=== PATIENT | female | born 1995 | race Caucasian/White ===

== ENCOUNTER 2021-04-25 04:58 | Inpatient (IN) | payer OTHER, SELFPAY ==
--- NOTE | 2021-04-18 08:47 | ANES.PREANE2 ---
Pre-Anesthetic Assessment Pre-Anesthetic Assessment: Proposed Procedure: Operation Date: 04/25/21 07:00 Proposed Procedures p Section(Not Applicable) - Esequiel Ortega MD Social: Social History: No alcohol and No tobacco Airway: Submandibular: WNL Cervical ROM: WNL MP: 3 History/ROS: No significant history except as noted and No significant complaints Pulmonary: Comments: allergies GI: GI: GERD Comments: takes omeprazole Anesthetic Plan: ASA status: 2 Anesthesia: Anesthesia Evaluation Risk of > 500 ml blood loss (7ml/kg in children): Yes, adequate IV access and fluids planned Data Anesthesia Cardiac Studies: No Data to Display
[2021-04-25] VITALS (28 sets, daily range): BP systolic 102–146; BP diastolic 52–90; PULSE 70–107; RESP 15–18; TEMP 36.5–37.2; O2SAT 96–100; BMI 34.4
[2021-04-25 05:55] LABS: Basophils % 0.3 %; Eosinophils # 0.2 10^3/uL (0.0-0.8); Eosinophils % 1.8 %; Hematocrit 34.6 % (37.0-47.0); Hemoglobin 11.7 g/dL (11.5-15.3); Lymphocytes # 2.2 10^3/uL (0.8-4.8); Lymphocytes % 16.9 %; Mean Corpuscular HGB Conc 33.8 g/dL (30.0-36.0); Mean Corpuscular Hemoglobin 31.3 pg (28.0-34.0); Mean Corpuscular Volume 92.5 fL (81-99); Mean Platelet Volume 12.9 fL (7.4-10.4); Monocytes % 7.8 %; Neutrophils # 9.32 10^3/uL (1.8-7.7); Neutrophils % 72.4 %; Nucleated Red Blood Cells % 0 %; Platelet Count 122 10^3/cmm (130-400); Red Blood Count 3.74 10^6/uL (4.1-5.3); Red Cell Distribution Width 13.2 % (12.1-15.1); White Blood Count 12.9 10^3/uL (4.0-10.0)
[2021-04-25] MEDS: lactated ringers 1,000 ML 999 ML IV ×2 (05:56→07:01)
--- NOTE | 2021-04-25 06:47 | PM.OBGYHP ---
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 Her has otherwise been unremarkable. When we discovered that she had a breech presentation, we discussed her options including an external version, or even delivering at another location where they would be comfortable delivering breech baby vaginally. After discussion we elected to proceed with a section. We discussed the risks of bleeding, infection, and damage intra-abdominal organs. She had no further questions and wishes to proceed. Her has been relatively unremarkable. Her due date is based on a first trimester ultrasound. Her glucose screen was negative. Her infectious disease panel was negative. She is rubella nonimmune. Her blood type is O+. There were no antibodies detected. She has had no previous abdominal surgeries. Present Details : 1 Para: 0 Labs Rubella: Non-Immune RPR: Negative GBS: Negative Review of Systems General: Reports: 10 or more systems reviewed and unremarkable except in HPI and below Const: Reports: fatigue; Denies: fever(s) Eyes: Denies: change in vision Card: Reports: other (Edema in feet and legs over the last few months of her ); Denies: chest pain Musc: Reports: back pain Neuro: Reports: headache(s) (Intermittently) Aroldo/Lymph: Denies: easy bruising Medications/Allergies Home Medications Medication Instructions Recorded Confirmed Last Taken Type 19 04/25/21 04/24/21 21:00 History cetirizine [Zyrtec] 10 mg PO DAILY 04/25/21 04/25/21 04/24/21 21:00 History omeprazole 20 mg PO DAILY 04/25/21 04/25/21 04/24/21 21:00 History Allergies Allergy/AdvReac Type Severity Reaction Status Date / Time No Known Drug Allergies Allergy Unknown Verified 04/25/21 05:11 Vitals/I&O/Wt Last Vital Signs Temp 98.2 F 04/25/21 05:12 Pulse 107 H 04/25/21 05:13 Resp 18 04/25/21 05:19 BP 132/79 04/25/21 05:13 Weight last 48 hrs Weight 227 lb Physical Exam Const: COMMON NORMALS: patient oriented x3 and alert HENMT: COMMON NORMALS: moist oral mucous membranes HEAD & SCALP: normal to inspection Chest: COMMONS NORMALS: normal inspection of the chest Resp: COMMON NORMALS: clear to auscultation bilaterally AUSCULTATION: clear to auscultation bilaterally Cardio: COMMON NORMALS: regular rate and regular rhythm RATE: regular rate RHYTHM: regular rhythm GI: INSPECTION: Yes normal to inspection and Yes other (Gravid) Extremity: COMMON NORMALS: normal to inspection GENERAL: Yes edema (Trace) Neuro: COMMON NORMALS: patient oriented x3, moves all extremities and no sensory deficits noted SENSORIUM/ORIENTATION: Yes alert Psych: COMMON NORMALS: mental status grossly normal Skin: COMMON NORMALS: no rashes or lesions noted GENERAL SKIN EXAM: no rashes or lesions noted Data : 04/25/21 05:25 A&P Assessment and plan (1) Breech presentation: We will proceed with a scheduled section. An ultrasound was performed this morning and found the baby still in breech presentation. Status: Acute (2) 39 weeks gestation of : Status: Acute Attestations Medical Necessity Statement*: Routine and post care Coding Level of Care Code Acute Frozen Foods Manager for Chg Fwd Diagnoses Breech presentation O32.1XX0 39 weeks gestation of Z3A.39
--- NOTE | 2021-04-25 07:00 | P.ANESUD_ITS ---
Pre-Anesthetic Update Pre-Anesthetic Assessment: Date of Surgery/Procedure: 04/25/21 Preop Tigist gnosis: IUP breech Proposed Procedure: Operation Date: 04/25/21 07:00 Proposed Procedures p Section(Not Applicable) - Esequiel Ortega MD Any changes to Pre-Anesthetic Assessment?: No Last Intake: Intake Last Liquid Date 04/24/21 Last Liquid Time 23:00 Last Solid Date 04/24/21 Last Solid Time 23:00 Labs Last 48hrs: Laboratory Results - last 48 hr 04/25/21 05:25 WBC 12.9 H RBC 3.74 L Hgb 11.7 Hct 34.6 L MCV 92.5 MCH 31.3 MCHC 33.8 RDW 13.2 Plt Count 122 L MPV 12.9 H Neut % (Auto) 72.4 Lymph % (Auto) 16.9 Kem[place] % (Auto) 7.8 Eos % (Auto) 1.8 Baso % (Auto) 0.3 Neut # (Auto) 9.32 H Lymph # (Auto) 2.2 Kem[place] # (Auto) 1.0 H Eos # (Auto) 0.2 Baso # (Auto) 0.0 Nucleated RBC % (a uto) 0 Nucleated RBCs # 0.0 Vitals: Temperature 98.2 F 04/25/21 05:12 Pulse Rate 107 H 04/25/21 05:13 Pulse Rhythm 04/25/21 05:59 Pulse Strength 3+ Normal 04/25/21 05:59 Respiratory Rate 18 04/25/21 05:19 Respiratory Effort Non-Labored 04/25/21 05:59 Respiratory Depth Normal 04/25/21 05:59 Respiratory Patter n 04/25/21 05:59 Blood Pressure 132/79 04/25/21 05:13 Oxygen Delivery Me thod 04/25/21 06:36 Exam: Pre-Anes Outpt Exam: alert, oriented x 3, clear to auscultation bilaterally and regular rate & rhythm Cardiac Studies: No Data to Display
[2021-04-25] MEDS: citric acid-sodium citrate 30 mL UDC PO (07:01)
[2021-04-25] MEDS: metoclopramide 5 mg/mL SDV 2 mL 10 MG IVP (07:01)
[2021-04-25] MEDS: famotidine 20 mg/2 mL INJ IVP (07:01)
--- NOTE | 2021-04-25 08:36 | P.OP_ITS ---
Operative Report Date of procedure: April 25, 2021 Pre-op Diagnosis: IUP breech, 39 weeks EGA Post-op diagnosis: same Procedure Done: Lower transverse section Specimens removed/disposition: 1. Healthy-appearing female in a rosa breech presentation, with Apgars of 7 and 9 and a weight of 7 pounds 10 ounces 2. Placenta with three-vessel cord delivered intact Pathology: none sent Surgeon: Esequiel Ortega Anesthesia: Epidural (Spinal) Estimated blood loss (mL): 500 Complications: None Condition: stable Disposition: floor (OB) Brief History: Refer to history and physical Procedure: The patient was brought back to the operating room where she was prepped and draped in usual sterile fashion. Anesthesia was found to be adequate. A lower transverse skin incision was then made with a #10 blade. I then dissected down to the underlying subcutaneous tissue until arriving at the prerectal fascia. The fascia was then nicked with the scalpel bilaterally. The fascial incisions were then carried laterally with Franco scissors. Attention was then turned to the superior aspect of the incision which was grasped with kochers and tented up away from the underlying rectus abdominis muscles. The muscles were then dissected away from the fascia manually, and later with Franco scissors. Attention was then turned to the inferior aspect of the incision, and the fascia was dissected away from the underlying muscle in similar fashion. The rectus abdominis muscles were then spread manually. The peritoneum was entered manually. Excellent visualization of the uterus was noted. A lower transverse uterine incision was then made with a #10 blade. Upon arriving at the intrauterine cavity, the uterine incision was then extended manually. The was noted to be in vertex position. The baby was delivered without difficulty. After delivery of the head, the mouth and nose were suctioned at the site of the incision. There was no meconium. There was no nuchal cord. The remainder of the body was then delivered and placed on the abdomen. The cord was cut and clamped. The baby was then handed to the waiting nurse. The placenta was removed intact. The uterus was externalized. The intrauterine cavity was cleansed of any remaining debris. The uterine incision was reapproximated in 2 layers. The first layer was performed with 0 Vicryl in a running locked stitch. The second layer was an imbricating stitch also using 0 Vicryl. The uterus was replaced into the abdome n. The peritoneum was then irrigated with warm saline. I reexamined the uterine incision and found it to be hemostatic. The rectus abdominis muscles were then reapproximated using 0 Vicryl in a running stitch. The fascia was then reapproximated using 0 Vicryl in running stitch. The subcutaneous tissue was then reapproximated using 0 Vicryl in a running stitch. The skin was reapproximated using gita. A sterile dressing was placed. All counts were correct x2. Both the mother and baby were in stable condition. Associated Problem List Diagnoses (1) 39 weeks gestation of : (2) Breech presentation:
[2021-04-25] MEDS: dextrose 5%-lactated ringers 1,000 ML 125 ML IV ×2 (09:55→19:40)
[2021-04-25] MEDS: ketorolac 30 mg/mL INJ IVP ×2 (14:53→21:32)
--- NOTE | 2021-04-25 15:30 | ANE.PACU2 ---
Inpatient post-anesthesia follow up: Airway intact: Yes Vital signs: Temperature 98.5 F Pulse Rate 89 Respiratory Rate 16 Blood Pressure 133/73 Pulse Oximetry 97 Oxygen Delivery Me thod Room Air Oxygen Flow Rate Fraction of Inspir ed Oxygen Hydration adequate: Yes Nausea and vomiting: No Pain level: 2 Mental status: Baseline
[2021-04-25] MEDS: docusate sodium 100 mg Capsule PO (18:26)
[2021-04-25] MEDS: simethicone 80 mg Chew PO (19:39)
--- NOTE | 2021-04-25 21:45 | PC.NURSE ---
Catheter discontinued by this RN. Patient tolerated well. AR RN
[2021-04-25 22:32] LABS: Hematocrit 30.4 % (37.0-47.0); Hemoglobin 10.2 g/dL (11.5-15.3); Mean Corpuscular HGB Conc 33.6 g/dL (30.0-36.0); Mean Corpuscular Hemoglobin 31.4 pg (28.0-34.0); Mean Corpuscular Volume 93.5 fL (81-99); Platelet Count 124 10^3/cmm (130-400); Red Blood Count 3.25 10^6/uL (4.1-5.3); White Blood Count 15.3 10^3/uL (4.0-10.0)
[2021-04-26] MEDS: ketorolac 30 mg/mL INJ IVP (02:28)
[2021-04-26] MEDS: HYDROcodone-acetaminophen 5-325 mg Tablet PO ×2 (02:28→15:50)
[2021-04-26] MEDS: simethicone 80 mg Chew PO (02:33)
[2021-04-26 05:30] VITALS: BP 117/78; PULSE 85; RESP 15; TEMP 36.7
--- NOTE | 2021-04-26 07:13 | PM.OBGYDC ---
Discharge Providers GARNISHMENT SPECIALIST Date of Admission: 04/25/21 04:58 Date of Discharge: 04/26/21 Attending Provider at Admission: Esequiel Ortega MD Attending Provider at Discharge: Esequiel Ortega MD Primary Care Provider: Saul Pompa Diagnoses at Discharge Discharge Diagnosis (1) 39 weeks gestation of : Status: Acute (2) Breech presentation: Status: Acute Reason for Visit Reason for Visit: csection Hospital Course Hospital Course The patient presented to the hospital for a scheduled section due to breech presentation. Her was unremarkable. Her course was also been unremarkable. Her baby breast-fed well multiple times. Her bleeding was minimal. Her pain was well controlled. She passed flatus on her first postoperative morning. Her diet was advanced and she tolerated it well. There were no concerns. Information Peripartum Data: Infant Delivery Method: Physical Exam Narrative: EXAM NARRATIVE: She is in no acute distress Lungs are clear auscultation bilaterally Her heart has a regular rate and rhythm Her fundus is below the umbilicus and firm Her dressing is clean, dry and intact Her extremities have trace edema Urinary Catheter Management^: Perea Latex: Cath Placed During This Visit: yes Urinary Catheter Date of Insertion: 04/25/21 Urinary Catheter Time of Insertion: 07:26 Discharge Data Data Completed and Pending: Labs from last 24 hours 04/25/21 21:39 WBC 15.3 H RBC 3.25 L Hgb 10.2 L Hct 30.4 L MCV 93.5 MCH 31.4 MCHC 33.6 RDW 13.0 Plt Count 124 L MPV 13.0 H Vitals: Last Vital Signs Temp 99.0 F 04/25/21 22:05 Pulse 88 04/25/21 22:05 Resp 17 04/25/21 22:05 BP 123/74 04/25/21 21:45 Pulse Ox 96 04/25/21 16:40 Discharge Plan Discharge Patient Disposition: Home Condition: Stable Prescriptions: New ibuprofen 800 mg Tablet 800 mg PO TID Qty: 45 RF: 0 hydrocodone-acetaminophen 5-325 mg Tablet 1 tab PO Q4H PRN (Reason: Moderate To Severe Pain) Qty: 28 RF: 0 DOK 100 mg Capsule 100 mg PO BID Qty: 20 RF: 0 Continued 19 RF: 0 Zyrtec 10 mg Capsule 10 mg PO DAILY RF: 0 Discontinued omeprazole 20 mg Capsule,Delayed Release(Dr/Ec) 20 mg PO DAILY RF: 0 Discharge Orders: Discharge Order (Routine); Ordered 04/26/21 Ordered By: Esequiel Ortega Referrals: Esequiel Ortega MD [Physician] - 4-7 days Discharge Diet: Usual diet Discharge Activity: Limit activity as instructed Patient Instructions: Vitamins (By mouth), Depression (GEN), Pre-eclampsia and Eclampsia (DC), Bleeding (DC), OB - Marleen, OB Discharge Report, OB Food/Drug Interaction Guide, Opioid Safety, OB Proud Parent Packet Discharge Attestations GARNISHMENT SPECIALIST Time Spent in Discharge Care*: less than 30 min Coding Level of Care Code Acute Drum Puller for Chg Fwd Diagnoses 39 weeks gestation of Z3A.39 Breech presentation O32.1XX0
[2021-04-26] MEDS: docusate sodium 100 mg Capsule PO (10:19)
[2021-04-26] MEDS: prenatal vitamin Capsule 1 CAP PO (10:19)
[2021-04-26 10:21] VITALS: BP 114/75; PULSE 89; RESP 16; TEMP 36.4
[2021-04-26] MEDS: ibuprofen 800 mg tablet PO (11:52)
[2021-04-26] MEDS: lanolin oint 7 gm 1 APPLIC TOPICAL (12:25)
[2021-04-26 15:01] VITALS: BP 134/84; PULSE 99; RESP 15; TEMP 36.4
[2021-04-26] MEDS: measles,mumps,rubella pf Vial (w/diluent) 0.5 ML SUBCUT (15:22)
== END 2021-04-26 16:00 | disposition home or self-care (01) | DRG 788 ==
PROVIDERS: Admitting Provider Family Medicine; PCP Nurse Practitioner Family; Visit Provider Family Medicine
PROC: 10D00Z1 Extraction of Products of Conception, Low, Open Approach (ICD-10-PCS; CPT 59514; principal; 2021-04-25 07:00)
DX: O32.1XX0 Maternal care for breech presentation, not applicable or unspecified (principal); Z3A.39 39 weeks gestation of pregnancy; Z37.0 Single live birth; N30.20 Other chronic cystitis without hematuria; K21.9 Gastro-esophageal reflux disease without esophagitis; Z87.440 Personal history of urinary (tract) infections; Z85.828 Personal history of other malignant neoplasm of skin; O99.344 Other mental disorders complicating childbirth; F41.8 Other specified anxiety disorders
CPT/HCPCS: 12345; 36415; 51702; 59025; 59409; 85025; 85027; 90707; 96372; 96374; 96375; J0690; J1100; J1885; J2274; J2405; J2765; J3490

== ENCOUNTER 2023-02-04 07:04 | Outpatient (CLI) | payer OTHER, SELFPAY ==
[2023-02-04 07:39] VITALS: PULSE 82; RESP 18; O2SAT 98
[2023-02-04] MEDS: albuterol 2.5 mg/3 mL Neb INHALATION (07:39)
[2023-02-04 07:44] VITALS: PULSE 80
== END 2023-02-04 07:05 | disposition home or self-care (01) ==
PROVIDERS: PCP Family Medicine; Visit Provider Otolaryngology
DX: R06.02 Shortness of breath (principal)
CPT/HCPCS: 94060; 94726; 94729; J7613

== ENCOUNTER 2024-06-13 05:14 | Inpatient (IN) | payer OTHER, SELFPAY ==
[2024-06-13] VITALS (28 sets, daily range): BP systolic 88–131; BP diastolic 55–77; PULSE 61–93; RESP 15–16; TEMP 36.6–37.1; O2SAT 99–100; BMI 34.2
[2024-06-13 05:45] LABS: Basophils % 0.2 %; Eosinophils # 0.2 10^3/uL (0.0-0.8); Eosinophils % 1.8 %; Hematocrit 36.5 % (36-47); Lymphocytes # 2.1 10^3/uL (0.8-4.8); Lymphocytes % 21.4 %; Mean Corpuscular Volume 91.3 fl (85-98); Monocytes # 0.7 10^3/uL (0.2-0.9); Monocytes % 7.5 %; Neutrophils # 6.77 10^3/uL (1.8-7.7); Neutrophils % 68.9 %; Nucleated Red Blood Cells % 0 %; Platelet Count 131 10^3/cmm (157-399); Red Cell Distribution Width 13.3 % (12.1-15.1); White Blood Count 9.83 10^3/uL (3.29-11.43)
[2024-06-13] MEDS: lactated ringers 1,000 ML 999 ML IV (06:04)
--- NOTE | 2024-06-13 06:53 | PM.OBGYHP ---
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 She presents to the hospital today for a repeat section. Her is otherwise been unremarkable. We discussed her options during including considering a [place]. We discussed the risks and benefits of both. She elected to proceed with a section. Her labs are in her were as follows her blood type is O+. Her antibody screen is negative. Her urine culture was GBS positive. She is rubella immune. The remainder of her infectious disease profile is within normal limits. Present Details : 2 Para: 1 Labs Rubella: Immune RPR: Negative GBS: Positive Review of Systems General: Reports: 10 or more systems reviewed and unremarkable except in HPI and below Const: Reports: fatigue; Denies: fever(s) Eyes: Denies: change in vision Card: Denies: chest pain Musc: Reports: back pain Aroldo/Lymph: Denies: easy bruising Medications/Allergies Home Medications Medication Instructions Recorded Confirmed Last Taken Type 19 1 tab PO DAILY 04/25/21 06/13/24 06/12/24 13:00 History escitalopram oxalate 5 mg tablet 5 mg PO DAILY 06/13/24 06/13/24 06/12/24 13:00 History omeprazole 20 mg capsule,delayed 20 mg PO DAILY 06/13/24 06/13/24 06/12/24 13:00 History release Allergies Allergy/AdvReac Type Severity Reaction Status Date / Time No Known Drug Allergies Allergy Unknown Verified 06/13/24 05:46 Vitals/I&O/Wt Last Vital Signs Pulse 93 06/13/24 05:53 BP 129/77 06/13/24 05:53 O2 Del Method Room Air 06/13/24 05:23 Weight last 48 hrs Weight 225 lb Weight 225 lb Physical Exam Const: COMMON NORMALS: patient oriented x3 and alert HENMT: COMMON NORMALS: moist oral mucous membranes HEAD & SCALP: normal to inspection Chest: COMMONS NORMALS: normal inspection of the chest Resp: COMMON NORMALS: clear to auscultation bilaterally AUSCULTATION: clear to auscultation bilaterally Cardio: COMMON NORMALS: regular rate and regular rhythm RATE: regular rate RHYTHM: regular rhythm GI: INSPECTION: Yes normal to inspection and Yes other (Gravid) Extremity: COMMON NORMALS: normal to inspection GENERAL: Yes edema (Trace) Neuro: COMMON NORMALS: patient oriented x3, moves all extremities and no sensory deficits noted SENSORIUM/ORIENTATION: Yes alert Psych: COMMON NORMALS: mental status grossly normal Skin: COMMON NORMALS: no rashes or lesions noted GENERAL SKIN EXAM: no rashes or lesions noted Data 06/13/24 05:37 Results Labs OB ([facility]): Obstetrics 05/02/24 Blood Type O Positive 06/13/24 Antibody Screen Negative 06/13/24 Hct 36.5 % (36-47) 06/13/24 Hgb 12.40 g/dL (11.27-16.99) 06/13/24 Rho(D) Type Rh positive 06/13/24 Plt Count 131 10^3/cmm (157-399) L 06/13/24 A&P Assessment and plan (1) 39 weeks gestation of : (2) History of section complicating : We will proceed with section. We have discussed the risks of bleeding, infection, and damage intra-abdominal organs. She and her have no further questions and wished to proceed. Attestations Medical Necessity Statement*: I anticipate routine and post care Coding Level of Care Code Acute Code for Chg Fwd Diagnoses 39 weeks gestation of Z3A.39 History of section complicating O34.219
[2024-06-13] MEDS: metoclopramide 5 mg/mL SDV 2 mL 10 MG IVP (06:56)
[2024-06-13] MEDS: famotidine 20 mg/2 mL INJ IVP (06:56)
[2024-06-13] MEDS: citric acid-sodium citrate 30 mL UDC PO (06:57)
[2024-06-13] MEDS: ceFAZolin 2,000 mg SDV 2000 MG IVP (06:57)
[2024-06-13] MEDS: BUPivacaine 0.5% INJ 30 mL INJECTION (08:15)
--- NOTE | 2024-06-13 08:42 | PM.OP ---
Operative Report Date of procedure: June 13, 2024 Pre-op diagnosis: 29-year-old 2 para 1-0-0-1 at 39 weeks estimated gestational age presenting for a repeat section Post-op diagnosis: Status post repeat section Procedure done: Repeat low-transverse section Specimens removed/disposition: 1. Male with a weight of 7 pounds 6 ounces and Apgars of 8 and 8 Surgeon: Esequiel Ortega MD Estimated blood loss (mL): 800 Complications: None Procedure: The patient was brought back to the operating room where she was prepped and draped in usual sterile fashion. Anesthesia was found to be adequate. A lower transverse skin incision was then made with a #10 blade. I then dissected down to the underlying subcutaneous tissue until arriving at the prerectal fascia. The fascia was then nicked with the scalpel bilaterally. The fascial incisions were then carried laterally with Franco scissors. Attention was then turned to the superior aspect of the incision which was grasped with kochers and tented up away from the underlying rectus abdominis muscles. The muscles were then dissected away from the fascia manually, and later with Franco scissors. Attention was then turned to the inferior aspect of the incision, and the fascia was dissected away from the underlying muscle in similar fashion. The rectus abdominis muscles were then spread manually. The peritoneum was entered manually. Excellent visualization of the uterus was noted. A lower transverse uterine incision was then made with a #10 blade. Upon arriving at the intrauterine cavity, the uterine incision was then extended manually. The infant was noted to be in vertex position. The baby was delivered without difficulty. After delivery of the head, the mouth and nose were suctioned at the site of the incision. There was no meconium. There was no nuchal cord. The remainder of the body was then delivered and placed on the abdomen. The cord was cut and clamped. The baby was then handed to the waiting nurse. The placenta was removed intact. The uterus was externalized. The intrauterine cavity was cleansed of any remaining debris. The uterine incision was reapproximated in 2 layers. The first layer was performed with 0 Vicryl in a running locked stitch. The second layer was an imbricating stitch also using 0 Vicryl. A single [id number] stitch was also placed in the middle of the uterus where there persistent bleeding was noted. Excellent hemostasis was noted after that. The uterus was replaced into the abdomen. The peritoneum was then irrigated with warm saline. I reexamined the uterine incision and found it to be hemostatic. The rectus abdominis muscles were then reapproximated using 0 Vicryl in a running stitch. The fascia was then reapproximated using 0 Vicryl in running stitch. The subcutaneous tissue was then reapproximated using 0 Vicryl in a running stitch. The skin was reapproximated using gita. A sterile dressing was placed. All counts were correct x2. Both the mother and baby were in stable condition.
--- NOTE | 2024-06-13 08:45 | ANE.PACU2 ---
Inpatient post-anesthesia follow up: Airway intact: Yes Vital signs: Temperature 98.6 F Pulse Rate 81 Respiratory Rate 16 Blood Pressure 117/65 Pulse Oximetry 100 Oxygen Delivery Me thod Room Air Oxygen Flow Rate Fraction of Inspir ed Oxygen Hydration adequate: Yes Nausea and vomiting: No Pain level: 1 Mental status: Baseline
[2024-06-13] MEDS: ketorolac 30 mg/mL INJ IVP ×2 (14:03→20:27)
[2024-06-13] MEDS: ferrous sulfate EC 325 mg Tablet PO (17:53)
[2024-06-13] MEDS: docusate sodium 100 mg Capsule PO (17:53)
--- NOTE | 2024-06-13 20:15 | PC.NURSE ---
patient stated that she went to use bathroom and was able to go after taking urine hat out . patient stated that it was a lot of urine . nurse educated to use urine hat next time for measurement. patient verbalized understanding.
[2024-06-13 20:37] LABS: Hematocrit 32.9 % (36-47); Mean Corpuscular HGB Conc 33.1 g/dL (30-55); Mean Corpuscular Hemoglobin 31.1 pg (27-33); Mean Platelet Volume 12.5 fL (7.4-10.4); Platelet Count 110 10^3/cmm (157-399); Red Cell Distribution Width 13.5 % (12.1-15.1); White Blood Count 12.44 10^3/uL (3.29-11.43)
[2024-06-14 03:11] VITALS: BP 121/78; PULSE 85
[2024-06-14] MEDS: ketorolac 30 mg/mL INJ IVP (03:11)
[2024-06-14 03:12] VITALS: RESP 16; TEMP 36.8
--- NOTE | 2024-06-14 07:50 | P.DS_ITS ---
Discharge Providers MORNING NEWS ANCHOR Date of Admission: 06/13/24 05:14 Date of Discharge: 06/14/24 Attending Provider at Admission: Esequiel Ortega MD Attending Provider at Discharge: Esequiel Ortega MD Primary Care Provider: Esequiel Ortega MD Diagnoses at Discharge Discharge Diagnosis (1) 39 weeks gestation of : Status: Acute (2) History of section complicating : Status: Acute Reason for Visit Reason for Visit: Epi Consult Hospital Course Hospital Course The patient presented to the hospital for scheduled repeat section. The was unremarkable. Her course was also unremarkable. Her bleeding was within normal limits. Her pain was well-controlled. Breast- feeding was okay at times but other times was difficult. She passed flatus. She is tolerating advance diet. There were no concerns. Information Peripartum Data: Delivery Method: Physical Exam Narrative: The patient is alert. She appears comfortable. Her heart has a regular rate and rhythm with no murmurs appreciated. Lungs are clear to auscultation bilaterally. Her fundus is firm and below the umbilicus. Urinary Catheter Management: Perea: Cath Placed During This Visit: yes, but has since been removed by the nurse Reason for Continuing Indwelling Catheter: Decision to DC Catheter Urinary Catheter Date of Insertion: 06/13/24 Urinary Catheter Time of Insertion: 07:10 Date Urinary Catheter Removed: 06/13/24 Time Urinary Catheter Discontinued: 14:50 Discharge Data Studies Completed and Pending Laboratory Results WBC 12.44 10^3/uL (3.29-11.43) H 06/13/24 20:20 RBC 3.50 10^6/uL (3.85-5.65) L 06/13/24 20:20 Hgb 10.90 g/dL (11.27-16.99) L 06/13/24 20:20 Hct 32.9 % (36-47) L 06/13/24 20:20 MCV 94.0 fl (85-98) 06/13/24 20:20 MCH 31.1 pg (27-33) 06/13/24 20:20 MCHC 33.1 g/dL (30-55) 06/13/24 20:20 RDW 13.5 % (12.1-15.1) 06/13/24 20:20 Plt Count 110 10^3/cmm (157-399) L 06/13/24 20:20 MPV 12.5 fL (7.4-10.4) H 06/13/24 20:20 Neut % (Auto) 68.9 % 06/13/24 05:37 Lymph % (Auto) 21.4 % 06/13/24 05:37 [place] % (Auto) 7.5 % 06/13/24 05:37 Eos % (Auto) 1.8 % 06/13/24 05:37 Baso % (Auto) 0.2 % 06/13/24 05:37 Neut # (Auto) 6.77 10^3/uL (1.8-7.7) 06/13/24 05:37 Lymph # (Auto) 2.1 10^3/uL (0.8-4.8) 06/13/24 05:37 [place] # (Auto) 0.7 10^3/uL (0.2-0.9) 06/13/24 05:37 Eos # (Auto) 0.2 10^3/uL (0.0-0.8) 06/13/24 05:37 Baso # (Auto) 0.0 10^3/uL (0.0-0.1) 06/13/24 05:37 Nucleated RBC % (auto) 0 % 06/13/24 05:37 Nucleated RBCs # 0.0 /100WBC 06/13/24 05:37 Blood Type O Positive 06/13/24 05:37 Rho(D) Type Rh positive 06/13/24 05:37 Antibody Screen Negative 06/13/24 05:37 Vitals Last Vital Signs Temp 98.2 F 06/14/24 03:12 Pulse 85 06/14/24 03:11 Resp 16 06/14/24 03:12 BP 121/78 06/14/24 03:11 Pulse Ox 100 06/13/24 08:45 O2 Del Method Room Air 06/13/24 08:45 Results Labs OB ([facility]): Obstetrics US 05/02/24 Blood Type O Positive 06/13/24 Antibody Screen Negative 06/13/24 Hct 32.9 % (36-47) L 06/13/24 Hgb 10.90 g/dL (11.27-16.99) L 06/13/24 Rho(D) Type Rh positive 06/13/24 Plt Count 110 10^3/cmm (157-399) L 06/13/24 Discharge Plan Discharge Patient Disposition: Home Condition: Stable Prescriptions: New ibuprofen 800 mg Tablet 800 mg PO TID Qty: 45 0RF hydrocodone-acetaminophen 5-325 mg Tablet 1 tab PO Q6H PRN (Reason: Moderate To Severe Pain) Qty: 28 0RF docusate sodium 100 mg Capsule 100 mg PO BID Qty: 14 0RF Continued 19 1 tab PO DAILY escitalopram oxalate 5 mg tablet 5 mg PO DAILY Discontinued omeprazole 20 mg capsule,delayed release(DR/EC) 20 mg PO DAILY Discharge Orders: Discharge Order (Routine); Ordered 06/14/24 Ordered By: Esequiel Ortega Referrals: Esequiel Ortega MD [Primary Care Provider] - 06/20/24 (Please set up visit for 6 weeks as well. Thank you) Discharge Diet: Usual diet Discharge Activity: Limit activity as instructed Patient Instructions: Opioid Safety Discharge Attestations MORNING NEWS ANCHOR Time Spent in Discharge Care*: less than 30 min Coding Level of Care Code Acute Code for Chg Fwd Diagnoses 39 weeks gestation of Z3A.39 History of section complicating O34.219
[2024-06-14] MEDS: ferrous sulfate EC 325 mg Tablet PO (08:58)
[2024-06-14] MEDS: docusate sodium 100 mg Capsule PO (08:58)
[2024-06-14] MEDS: PRENATAL VIT NO.130/IRON/FOLIC 1 EACH TABLET PO (08:58)
[2024-06-14 09:02] VITALS: BP 122/62; PULSE 80
[2024-06-14] MEDS: HYDROcodone-acetaminophen 5-325 mg Tablet PO (09:36)
[2024-06-14 14:41] VITALS: BP 130/66; PULSE 82
[2024-06-14 15:04] VITALS: BP 130/66; PULSE 82; RESP 16; TEMP 36.6
== END 2024-06-14 15:18 | disposition home or self-care (01) | DRG 788 ==
PROVIDERS: Admitting Provider Family Medicine; PCP Family Medicine; Visit Provider Family Medicine
PROC: (CPT 59514; principal; 2024-06-13 07:00)
DX: O34.211 Maternal care for low transverse scar from previous cesarean delivery (principal); N85.8 Other specified noninflammatory disorders of uterus; O99.824 Streptococcus B carrier state complicating childbirth; Z3A.39 39 weeks gestation of pregnancy; Z37.0 Single live birth
CPT/HCPCS: 36415; 51702; 59025; 59409; 85025; 85027; 86850; 86900; 96374; 96376; J0690; J1885; J2274; J2371; J2405; J2765; J3010; J3490; J7120